=== PATIENT | female | born 1970 | race Two or more races ===

== ENCOUNTER 2017-06-15 18:34 | Emergency (ER) | payer OTHER ==
[~2017-06-15] VITALS: Ht 162.6 cm; Wt 72.6 kg
[2017-06-15] MEDS ORDERED: AVALIDE 300-121 EACH (18:58)
[2017-06-15] MEDS ORDERED: SYNTHROID125 MCG (18:58)
== END 2017-06-15 21:10 | disposition home or self-care (01) ==
LOC: ER 18:34
DX: R53.1 Weakness (principal); R20.0 Anesthesia of skin; F41.0 Panic disorder [episodic paroxysmal anxiety]

== ENCOUNTER 2018-04-05 07:57 | Outpatient (CLI) | payer OTHER ==
[~2018-04-05 07:57] MED LIST: AVALIDE 300-121 EACH; SYNTHROID125 MCG
== END 2018-04-05 07:59 | disposition home or self-care (01) ==
LOC: SONOGRAMA 07:57
DX: E04.2 Nontoxic multinodular goiter (principal)

== ENCOUNTER 2018-06-26 08:56 | Outpatient (CLI) | payer OTHER | END 2018-06-26 10:26 | disposition home or self-care (01) | LOC: LAB 08:56 | DX: N94.6 Dysmenorrhea, unspecified (principal) ==

== ENCOUNTER 2018-11-06 12:48 | Inpatient (IN) | payer OTHER ==
[~2018-11-06] VITALS: Ht 152.4 cm; Wt 83.5 kg
[2018-11-06] MEDS ORDERED: JENTADUETO 2.51 EAC2 (13:37)
[2018-11-06] MEDS ORDERED: AVALIDE 300-121 EACH (13:38)
[2018-11-06] MEDS ORDERED: LIPITOR40 MG (13:39)
[2018-11-06] MEDS ORDERED: TOPROL XL50 MG (13:39)
[2018-11-09] MEDS ORDERED: MEDROLPACK PO (10:59)
[2018-11-09] MEDS ORDERED: ALBUTEROL2.5 MG/3 M IH (10:59)
[2018-11-09] MEDS ORDERED: AZITHROMYCIN250 MG PO (10:59)
[2018-11-09] MEDS ORDERED: METFORMIN HCL500 MG PO (12:08)
== END 2018-11-09 13:00 | disposition home or self-care (01) | DRG 202 ==
LOC: ER 12:48 → SEC-K 20:39 → MEDJ 20:39
PROVIDERS: ADMIT Internal Medicine
PROC: 3E0F7GC Introduction of Other Therapeutic Substance into Respiratory Tract, Via Natural or Artificial Opening (ICD-10-PCS; 2018-11-06)
PROC: 4A033R1 Measurement of Arterial Saturation, Peripheral, Percutaneous Approach (ICD-10-PCS; 2018-11-06)
PROC: 8E0ZXY6 Isolation (ICD-10-PCS; 2018-11-06)
PROC: BB24ZZZ Computerized Tomography (CT Scan) of Bilateral Lungs (ICD-10-PCS; principal; 2018-11-07)
DX: J45.42 Moderate persistent asthma with status asthmaticus (principal); A41.9 Sepsis, unspecified organism; J21.9 Acute bronchiolitis, unspecified; E11.9 Type 2 diabetes mellitus without complications; I10 Essential (primary) hypertension; E03.8 Other specified hypothyroidism; B96.0 Mycoplasma pneumoniae [M. pneumoniae] as the cause of diseases classified elsewhere; R09.02 Hypoxemia; Z79.4 Long term (current) use of insulin

== ENCOUNTER 2019-08-12 09:59 | Outpatient (CLI) | payer OTHER ==
[~2019-08-12 09:59] MED LIST changes: +ALBUTEROL2.5 MG/3 M IH; +AZITHROMYCIN250 MG PO; +JENTADUETO 2.51 EAC2; +LIPITOR40 MG; +MEDROLPACK PO; +METFORMIN HCL500 MG PO; +TOPROL XL50 MG
== END 2019-08-12 10:24 | disposition home or self-care (01) ==
LOC: MAMO-SONO 09:59
PROVIDERS: ATTEND Family Medicine
DX: R92.2 Inconclusive mammogram (principal); I10 Essential (primary) hypertension; R14.0 Abdominal distension (gaseous); Z12.31 Encounter for screening mammogram for malignant neoplasm of breast

== ENCOUNTER 2020-04-01 07:21 | Outpatient (CLI) | payer OTHER | END 2020-04-01 16:36 | disposition home or self-care (01) | LOC: SONOGRAMA 07:21 | PROVIDERS: ATTEND Internal Medicine Hematology & Oncology | DX: K76.0 Fatty (change of) liver, not elsewhere classified (principal); R10.11 Right upper quadrant pain ==

== ENCOUNTER 2020-04-24 07:16 | Outpatient (CLI) | payer OTHER | END 2020-04-24 07:52 | disposition home or self-care (01) | LOC: SONOGRAMA 07:16 → MAMO-SONO 08:15 | PROVIDERS: ATTEND Internal Medicine Sports Medicine | DX: E04.2 Nontoxic multinodular goiter (principal); K76.0 Fatty (change of) liver, not elsewhere classified; R10.11 Right upper quadrant pain; N64.59 Other signs and symptoms in breast; K57.90 Diverticulosis of intestine, part unspecified, without perforation or abscess without bleeding ==

== ENCOUNTER 2020-07-21 09:42 | Outpatient (CLI) | payer OTHER | END 2020-07-21 09:52 | disposition home or self-care (01) | LOC: NUCLEAR 09:42 | DX: M79.604 Pain in right leg (principal); M79.605 Pain in left leg ==

== ENCOUNTER 2020-07-27 11:36 | Outpatient (CLI) | payer OTHER | END 2020-07-27 11:48 | disposition home or self-care (01) | LOC: NUCLEAR 11:36 | DX: M79.604 Pain in right leg (principal); M79.605 Pain in left leg; I73.9 Peripheral vascular disease, unspecified ==

== ENCOUNTER 2022-03-01 00:19 | Emergency (ER) | payer OTHER ==
[~2022-03-01] VITALS: Ht 152.4 cm; Wt 80.7 kg
[2022-03-01] MEDS ORDERED: LOSARTAN POTAS100 MG PO (00:32)
[2022-03-01] MEDS ORDERED: RAYOS1 MG (00:33)
[2022-03-01] MEDS ORDERED: CHLORTHALIDONE25 MG (00:34)
== END 2022-03-01 01:49 | disposition home or self-care (01) ==
LOC: ER 00:19
DX: B00.2 Herpesviral gingivostomatitis and pharyngotonsillitis (principal)

== ENCOUNTER 2022-10-29 18:47 | Emergency (ER) | payer OTHER ==
[~2022-10-29] VITALS: Ht 167.6 cm; Wt 90.7 kg
[~2022-10-29 18:47] MED LIST changes: +CHLORTHALIDONE25 MG; +LOSARTAN POTAS100 MG PO; +RAYOS1 MG
== END 2022-10-29 22:34 | disposition home or self-care (01) ==
LOC: ER 18:48
DX: S80.01XA Contusion of right knee, initial encounter (principal); V92.09XA Drowning and submersion due to fall off unspecified watercraft, initial encounter; Y93.9 Activity, unspecified; Y92.9 Unspecified place or not applicable; Y99.9 Unspecified external cause status

== ENCOUNTER 2023-09-01 07:04 | Outpatient (CLI) | payer OTHER | END 2023-09-01 07:19 | disposition home or self-care (01) | LOC: MRI 07:04 | DX: R14.0 Abdominal distension (gaseous) (principal); S09.90XA Unspecified injury of head, initial encounter | CPT/HCPCS: 70551 ==

== ENCOUNTER 2024-11-29 12:02 | Outpatient (CLI) | payer OTHER | END 2024-11-29 12:13 | disposition home or self-care (01) | LOC: RAD 12:02 | PROVIDERS: ATTEND Internal Medicine Rheumatology | DX: S62.611S Displaced fracture of proximal phalanx of left index finger, sequela (principal) ==